=== PATIENT | male | born 1990 | race Caucasian/White ===

== ENCOUNTER 2016-11-22 11:58 | Emergency (ER) | payer BC, OTHER ==
[2016-11-22 12:24] VITALS: BP 139/69
--- NOTE | 2016-11-22 12:48 | EDM.PDOC ---
ED HPI GENERAL MEDICAL PROBLEM - General Chief Complaint: Chest Pain Time Seen by Provider: 11/22/16 12:20 Source of Information: Reports: Patient History Limitations: Reports: No Limitations - History of Present Illness INITIAL COMMENTS - FREE TEXT/NARRATIVE: Patient presents with pain in the lower sternal and rib region that started about half hour ago while he was walking checking fence. He describes it as sharp and stabbing and worsened by deep breathing. He says he has had similar but milder pains before that usually resolved in a couple minutes with slow deep breaths. He also has had a pain radiating from his neck down the back of his arm to the long finger. This has happened before also but these have never occurred together before today. He denies cigarette and street drug use. He drinks about 1-2 beers or wine daily. 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 Yesterday a cow squeezed him against a wall leaving his left lateral ribs/flank sore. He hasn't had much to eat or drink today. Right Arm Pain Score (Numeric/FACES): 6 Bilateral Chest Pain Score (Numeric/FACES): 2 - Related Data Allergies Allergy/AdvReac Type Severity Reaction Status Date / Time azithromycin [From Zithromax] Allergy Airway Verified 11/22/16 12:24 Tightness diphenhydramine Allergy Hives Verified 11/22/16 12:24 [From Benadryl] Home Meds: Home Meds Multivitamin [Multi-Vitamin Daily] 1 tab PO DAILY 11/22/16 [History] Social & Family History - Tobacco Use Smoking Status *Q: Never Smoker - Caffeine Use Caffeine Use: Reports: Soda, Tea - Alcohol Use Days Per Week of Alcohol Use: 7 Number of Drinks Per Day: 2 Total Drinks Per Week: 14 - Recreational Drug Use Recreational Drug Use: No ED ROS GENERAL - Review of Systems Review Of Systems: See Below Constitutional: Denies: Fever, Chills, Weakness, Fatigue HEENT: Denies: Nosebleed, Vision Change Respiratory: Denies: Shortness of Breath, Wheezing, Cough Cardiovascular: Reports: Chest Pain. Denies: Blood Pressure Problem, Lightheadedness, Syncope GI/Abdominal: Reports: Diarrhea (couple days). Denies: Abdominal Pain, Nausea, Vomiting : Denies: Discharge, Dysuria, Hematuria Musculoskeletal: Reports: Neck Pain, Shoulder Pain, Arm Pain (all along the right side as in HPI) Skin: Denies: Cyanosis, Jaundice, Mottled, Pallor, Diaphoresis Neurological: Denies: Confusion, Dizziness, Headache ED EXAM, GENERAL - Physical Exam Exam: See Below Exam Limited By: No Limitations General Appearance: Alert, WD/WN, No Apparent Distress Eye Exam: Bilateral Eye: EOMI, Normal Inspection, PERRL Ears: Normal External Exam, Hearing Grossly Normal Nose: Normal Inspection, No Blood Throat/Mouth: Normal Lips, Normal Voice, No Airway Compromise Head: Atraumatic, Normocephalic Neck: Supple, Full Range of Motion, Tender Lateral (Paraspinal muscles extending down the right trapezius is very tense and tender to palpation. Left side is also but milder.). No: Limited Range of Motion, Tender Midline Respiratory/Chest: No Respiratory Distress, Lungs Clear, Normal Breath Sounds, Other (deep breathing exacerbated the CC; Palpation is tender between ribs approx 6-7 adjacent to left sternum primarily with decreasing tenderness surrounding that point. Ribs somewhat tender there but between them is the worst.) Cardiovascular: Normal Peripheral Pulses, Regular Rate, Rhythm, No Edema, No Gallop, No Murmur Peripheral Pulses: 2+: Carotid (L), Carotid (R), Radial (L), Radial (R) GI/Abdominal: Normal Bowel Sounds, Soft, Non-Tender, No Organomegaly, No Distention, Pelvis Stable Back Exam: Full Range of Motion, CVA Tenderness (L). No: CVA Tenderness (R), Paraspinal Tenderness, Vertebral Tenderness Extremities: Non-Tender, Other (Right arm ROM is significant for pain in trap with lateral raise past 110 degrees, forward flexion against resistance and internal rotation beyond the sacroiliac region. Otherwise full ROM without pain.) Neurological: Alert, Oriented, Normal Cognition, No Motor/Sensory Deficits Psychiatric: Normal Affect, Normal Mood Skin Exam: Warm, Dry, Intact, Normal Color, No Rash Course - Vital Signs Last Recorded V/S: Last Vital Signs Temp 98.6 F 11/22/16 12:13 Pulse 72 11/22/16 12:13 Resp 15 11/22/16 12:13 BP 139/69 11/22/16 12:13 Pulse Ox 100 11/22/16 12:13 - Orders/Labs/Meds Orders: Active Orders 24 hr Category Date Time Status EKG Documentation Completion [RC] ASDIRECTED Care 11/22/16 12:26 Active CXR [Chest 2V] [CR] Stat Exams 11/22/16 12:38 Ordered EKG 12 Lead [EK] Routine Ther 11/22/16 12:25 Ordered - Re-Assessments/Exams Free Text/Narrative Re-Assessment/Exam: 11/22/16 13:15 While in ER his chest wall pain has subsided quite a bit. EKG, CXR and labs are normal. We discussed findings. Will treat with Ibuprofen, flexeril and recommend massage. Follow up with PCP if not improving or if worsening. Departure - Departure Time of Disposition: 13:32 Disposition: Home, Self-Care 01 Condition: good Clinical Impression: Trapezius muscle spasm Chest wall muscle strain Qualifiers: Encounter type: initial encounter Qualified Code(s): S29.011A - Strain of muscle and tendon of front wall of thorax, initial encounter - Discharge Information Forms: ED Department Discharge Additional Instructions: 1. You can take Ibuprofen 600 mg every 8 hours if needed for pain of the ribs or neck. 2. Take the Flexeril as directed for the neck muscle spasm, but avoid use before driving or operating equipment as it causes drowsiness. 3. Getting a massage of neck, back and arms every few days for a couple weeks should help also. 4. Drink 8 cups of water a day. 5. Follow up with your PCP if this isn't improving or if worsening. 6. Return to ER as needed. - My Orders Last 24 Hours: My Active Orders 11/22/16 12:25 EKG 12 Lead [EK] Routine 11/22/16 12:26 EKG Documentation Completion [RC] ASDIRECTED 11/22/16 12:38 CXR [Chest 2V] [CR] Stat - Assessment/Plan Last 24 Hours: My Active Orders 11/22/16 12:25 EKG 12 Lead [EK] Routine 11/22/16 12:26 EKG Documentation Completion [RC] ASDIRECTED 11/22/16 12:38 CXR [Chest 2V] [CR] Stat
[2016-11-22 13:28] LABS: CHLORIDE,CL 107 mmol/L (98-115); SODIUM,NA 143 mmol/L (136-145)
== END 2016-11-22 13:40 | disposition home or self-care (01) ==
LOC: KA.ED 11:58
DX: S29.011A Strain of muscle and tendon of front wall of thorax, initial encounter (principal); M62.838 Other muscle spasm; Z88.1 Allergy status to other antibiotic agents; Z79.899 Other long term (current) drug therapy; X58.XXXA Exposure to other specified factors, initial encounter; Y93.01 Activity, walking, marching and hiking
CPT/HCPCS: 36415; 71020; 80048; 85025; 93005; 99283

== ENCOUNTER 2022-07-18 17:47 | Emergency (ER) | payer OTHER ==
[2022-07-18 18:03] VITALS: BP 146/80; PULSE 99
== END 2022-07-18 18:40 | disposition home or self-care (01) ==
LOC: KA.ED 17:47
DX: S61.431A Puncture wound without foreign body of right hand, initial encounter (principal); F17.210 Nicotine dependence, cigarettes, uncomplicated; Z88.1 Allergy status to other antibiotic agents; Z88.8 Allergy status to other drugs, medicaments and biological substances; W27.3XXA Contact with needle (sewing), initial encounter
CPT/HCPCS: 99282; 99283